=== PATIENT | female | born 1965 | race African-American/Black ===

== ENCOUNTER 2024-02-24 21:45 | Emergency (ER) | payer OTHER ==
[~2024-02-24] VITALS: Ht 170.2 cm; Wt 71.0 kg
[~2024-02-24 21:45] MED LIST: AMLO10TA80 PO; ATOR20TA PO; ESCI10TA PO; MELA5TAB19 PO
[2024-02-24 21:59] VITALS: BP 148/84; PULSE 63; RESP 16; TEMP 98.4; O2SAT 100
[2024-02-25 01:48] LABS: BASOPHILS % 0.7 % (0.0-2.0); CHLORIDE 109 mEq/L (98-107); DIFFERENTIAL COMMENT 0; EOSINOPHILS % 0.9 % (0.0-5.0); HEMATOCRIT. 42.8 % (36.0-48.0); HEMOGLOBIN. 14.9 g/dL (12.0-16.0); LYMPHOCYTES % 58.5 % (20.0-50.0); MEAN CORPUSCULAR HEMOGLOBIN 28.9 pg (28.0-32.0); MEAN CORPUSCULAR HGB CONC 34.8 g/dL (31.0-37.0); MEAN CORPUSCULAR VOLUME 82.9 fL (81.0-99.0); MEAN PLATELET VOLUME 8.9 fl (7.4-10.4); MONOCYTES % 8.1 % (2.0-8.0); NEUTROPHILS % 31.8 % (40.0-76.0); PLATELET 195 x1000/uL (130-400); POTASSIUM 3.7 mEq/L (3.5-5.1); RED BLOOD CELL COUNT 5.17 mill/uL (4.2-5.4); RED CELL DISTRIBUTION WIDTH 14.5 % (11.6-14.6); SODIUM 142 mEq/L (136-145); WHITE BLOOD COUNT 6.1 x1000/uL (4.5-11.0)
[2024-02-25 01:49] LABS: CARBON DIOXIDE 27 mEq/L (21-32)
[2024-02-25 01:50] LABS: CALCIUM 9.7 mg/dL (8.7-10.4)
[2024-02-25 01:55] LABS: CREATININE 0.7 mg/dL (0.6-1.0); GLUCOSE 96 mg/dL (70-105); UREA NITROGEN BLOOD 10 mg/dL (9-23)
[2024-02-25 01:56] LABS: TROPONIN I HIGH SENSITIVITY 18 ng/L (3.0-34)
[2024-02-25] MEDS ORDERED: ALBU6.7H15 INH (02:50)
== END 2024-02-25 03:23 | disposition home or self-care (01) ==
LOC: ER 21:45
DX: R07.89 Other chest pain (principal); J45.909 Unspecified asthma, uncomplicated; Z98.51 Tubal ligation status; Z88.8 Allergy status to other drugs, medicaments and biological substances; Z98.890 Other specified postprocedural states
CPT/HCPCS: 36415; 71045; 80048; 83880; 84484; 85025; 93005; 99285

== ENCOUNTER 2024-02-25 04:01 | Emergency (ER) | payer OTHER ==
[~2024-02-25] VITALS: Ht 165.1 cm; Wt 73.0 kg
[~2024-02-25 04:01] MED LIST changes: +ALBU6.7H15 INH
[2024-02-25 04:25] VITALS: BP 137/82; PULSE 76; RESP 16; TEMP 98; O2SAT 99
== END 2024-02-25 08:23 | disposition home or self-care (01) ==
LOC: ER 04:08
DX: R19.7 Diarrhea, unspecified (principal); J45.909 Unspecified asthma, uncomplicated; Z98.890 Other specified postprocedural states; Z98.51 Tubal ligation status; Z88.8 Allergy status to other drugs, medicaments and biological substances
CPT/HCPCS: 99281